=== PATIENT | female | born 1980 | race Caucasian/White ===

== ENCOUNTER 2016-06-14 10:37 | Emergency (ER) | payer MEDICAID ==
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
[2016-06-14] MEDS ORDERED: Prochlorperazine 5 mg/mL 2mL Vial IM STA (11:11)
[2016-06-14] MEDS ORDERED: Prochlorperazine 5 mg/mL 2mL Vial ONE (11:29)
[2016-06-14 11:56] LABS: % BASOPHILS 0.9 % (0.0-2.0); % EOSINOPHILS 1.9 % (0.0-5.0); % LYMPHOCYTES 21.9 % (20.0-50.0); % MONOCYTES 10.1 % (2.0-10.0); % NEUTROPHILS 65.2 % (40.0-80.0); HEMATOCRIT 41.3 % (35.0-45.0); MEAN CORPUSCULAR HEMOGLOBIN 29.7 pg (27.0-31.0); MEAN CORPUSCULAR HGB CONC 33.8 pg (28.0-36.0); MEAN PLATELET VOLUME 7.8 fl; NEUTROPHILE ABSOLUTE 5.2 Th/cmm (1.8-8.0); RED BLOOD COUNT 4.69 Mil/cmm (3.80-5.10); RED CELL DISTRIBUTION WIDTH 12.2 % (11.5-20.0); WHITE BLOOD COUNT 8.1 Th/cmm (4.8-10.8)
[2016-06-14 11:57] LABS: PLATELET COUNT 363 Th/cmm (150-400)
[2016-06-14 12:03] LABS: ANION GAP 10.2 (7.0-16.0); BUN - UREA NITROGEN 15 mg/dL (7-25); BUN/CREATININE RATIO 18.8; CALCIUM SERUM 9.9 mg/dL (8.6-10.3); CARBON DIOXIDE 28.4 mEq/L (21.0-31.0); CHLORIDE 103 mEq/L (98-107); CREATININE - SERUM 0.8 mg/dL (0.6-1.2); GLUCOSE 106 mg/dL (70-105); LIPASE 17 U/L (11-82); POTASSIUM SERUM 3.6 mEq/L (3.5-5.1); SODIUM SERUM 138 mEq/L (136-145)
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
== END 2016-06-14 12:50 | disposition home or self-care (01) ==
LOC: ER 10:37
DX: S39.81XA Other specified injuries of abdomen, initial encounter (principal); K46.9 Unspecified abdominal hernia without obstruction or gangrene; R03.0 Elevated blood-pressure reading, without diagnosis of hypertension; Z88.1 Allergy status to other antibiotic agents; W50.1XXA Accidental kick by another person, initial encounter; Y93.89 Activity, other specified; Y92.89 Other specified places as the place of occurrence of the external cause; Y99.8 Other external cause status
CPT/HCPCS: 99285; 74176; 96372 ×2; 36415; 85025; 83690; 80048; J1885; J0780

== ENCOUNTER 2016-12-11 11:33 | Emergency (ER) | payer MEDICAID ==
--- NOTE | 2016-12-11 11:45 | ED Physician Chart ---
Chief Complaint/HPI - Patient Information Date Seen:: 12/11/16 Time Seen:: 11:43 Chief Complaint:: lower extremity swelling History of Present Illness:: 36-year-old female complains of acute, constant, moderate to severe, bilateral lower shoulder swelling that has worsened over the past 3 days. Has some associated redness to the lower extremities. Also complains of acute, constant , worse with exertion, chest pain that started this morning also. Reports that she has a family history of hypercoagulable state. Denies ever having any DVT. Reports using methamphetamines 3 days ago. Denies numbness, tingling, diaphoresis, nausea, vomiting, headache, acute vision changes, abdominal pain, dysuria, gross hematuria, gross blood in stool. Allergies:: Allergies Allergy/AdvReac Type Severity Reaction Status Date / Time doxycycline Allergy Verified 06/14/16 10:45 Historian:: Patient Review:: Nurse's Note Reviewed Review of Systems - Review of Systems Other: Complete system review otherwise unremarkable except as noted in history of present illness. Past Medical History - Past Medical History Past Medical History: No significant medical hx Family History: None Social History: Non Smoker, No Alcohol, Illicit Drug Use (methamphetamine) Surgical History: None Psychiatricy History: None Medication: None Family Medical History - Family Member Paternal Grandfather History Unknown: Yes Ethnicity: Non- Living Status: Hx Family Cancer: Yes Mother History Unknown: Yes Living Status: Still Living Hx Family Hypertension: Yes Physical Exam - Physical Examination Other:: INITIAL VITAL SIGNS: Reviewed by me GENERAL: Alert and interactive. No acute distress HEAD: Head is normocephalic and atraumatic EYES: EOMI. PERRL. No scleral icterus. No conjunctival injection ENT: Moist mucous membranes. NECK: Supple. No masses. Full range of motion RESPIRATORY: No tachypnea. Clear breath sounds bilaterally. No wheezing, rales, or rhonchi CV: Regular rate and rhythm. No murmurs, rubs, or gallops ABDOMEN: Soft, non-distended, non-tender. No guarding. No rebound. No masses. EXTREMITIES: No deformity. No cyanosis. +1 pitting edema bilateral lower extremities. SKIN: Warm and dry. No obvious rashes. NEUROLOGIC: Alert and oriented. Face is symmetric. Speech is normal. Moves all extremities equally. Motor and sensory distally intact. Labs/Radiology/EKG Results - Lab Results Results: Lab Results 12/11/16 12/11/16 12/11/16 Range/Units 11:58 11:58 11:58 WBC 7.4 (4.8-10.8) Th/cmm RBC 4.50 (3.80-5.10) Mil/cmm Hgb 13.7 (11.7-15.5) gm/dL Hct 40.4 (35.0-45.0) % MCV 89.9 (81-100) fl MCH 30.4 (27.0-31.0) pg MCHC Differential 33.8 (28.0-36.0) pg RDW 12.9 (11.5-20.0) % Plt Count 292 (150-400) Th/cmm MPV 8.4 fl Neutrophils % 55.0 (40.0-80.0) % Lymphocytes % 29.9 (20.0-50.0) % Monocytes % 10.9 H (2.0-10.0) % Eosinophils % 3.9 (0.0-5.0) % Basophils % 0.3 (0.0-2.0) % PT 9.6 (9.5-11.5) SECONDS INR 0.92 (0.5-1.4) D-Dimer 103 (100-400) ng/mL Sodium 134 L (136-145) mEq/L Potassium 3.8 (3.5-5.1) mEq/L Chloride 104 (98-107) mEq/L Carbon Dioxide 27.1 (21.0-31.0) mEq/L Anion Gap 6.7 L (7.0-16.0) BUN 13 (7-25) mg/dL Creatinine 0.9 (0.6-1.2) mg/dL Est GFR ( Amer) > 60.0 (>90) ml/min Est GFR (Non-Af Amer) > 60.0 ml/min BUN/Creatinine Ratio 14.4 Glucose 103 (70-105) mg/dL Calcium 9.7 (8.6-10.3) mg/dL Total Bilirubin 0.4 (0.3-1.0) mg/dL AST 15 (13-39) U/L ALT 18 (7-52) U/L Alkaline Phosphatase 74 (34-104) U/L Troponin I (0.01-0.05) ng/mL B-Natriuretic Peptide (5.0-100.0) pg/mL Total Protein 7.0 (6.0-8.3) gm/dL Albumin 4.0 (3.7-5.3) gm/dL Globulin 3.0 gm/dL Albumin/Globulin Ratio 1.3 (1.0-1.8) Serum , Qual (NEGATIVE) 12/11/16 12/11/16 Range/Units 11:58 12:19 WBC (4.8-10.8) Th/cmm RBC (3.80-5.10) Mil/cmm Hgb (11.7-15.5) gm/dL Hct (35.0-45.0) % MCV (81-100) fl MCH (27.0-31.0) pg MCHC Differential (28.0-36.0) pg RDW (11.5-20.0) % Plt Count (150-400) Th/cmm MPV fl Neutrophils % (40.0-80.0) % Lymphocytes % (20.0-50.0) % Monocytes % (2.0-10.0) % Eosinophils % (0.0-5.0) % Basophils % (0.0-2.0) % PT (9.5-11.5) SECONDS INR (0.5-1.4) D-Dimer (100-400) ng/mL Sodium (136-145) mEq/L Potassium (3.5-5.1) mEq/L Chloride (98-107) mEq/L Carbon Dioxide (21.0-31.0) mEq/L Anion Gap (7.0-16.0) BUN (7-25) mg/dL Creatinine (0.6-1.2) mg/dL Est GFR ( Amer) (>90) ml/min Est GFR (Non-Af Amer) ml/min BUN/Creatinine Ratio Glucose (70-105) mg/dL Calcium (8.6-10.3) mg/dL Total Bilirubin (0.3-1.0) mg/dL AST (13-39) U/L ALT (7-52) U/L Alkaline Phosphatase (34-104) U/L Troponin I < 0.01 L (0.01-0.05) ng/mL B-Natriuretic Peptide 7.5 (5.0-100.0) pg/mL Total Protein (6.0-8.3) gm/dL Albumin (3.7-5.3) gm/dL Globulin gm/dL Albumin/Globulin Ratio (1.0-1.8) Serum , Qual NEGATIVE (NEGATIVE) - Radiology Results Results: Ultrasound venous Doppler bilateral lower extremity Negative for DVT - EKG Interpretations Comments:: 12-lead EKG Interpretation by Britney Hurt MD: Normal Sinus Rhythm with ventricular rate of 78 beats per minute Normal axis Normal intervals No acute ST or T wave changes. No obvious STEMI ED Septic Shock - . Is Septic Shock (SBP<90, OR Lactate>4 mmol\L) present?: No Reassessment (Disposition) - Reassessment Reassessment:: Patient presents with acute, worsening, bilateral lower extremity edema. Also has some chest pain. Said that she used amphetamines 3 days ago. The ultrasound venous Doppler bilateral lower extremity is negative for any DVTs. D -dimer, BNP and troponin are also unremarkable. Edema of the lower extremities made the dependent edema. Have recommended elevating legs at home. Has some unspecified chest pain. Recommended follow-up with primary care 1-2 days. Return to ER precautions are given. Patient says she understands and agrees with the plan. Blood pressure was noted to be elevated over 120/80. There were no signs of hypertension. Discussed the findings with the patient and recommended that the patient follow up with the primary care physician regarding the elevated blood pressure. Reassessment Condition:: Improved - Diagnosis Diagnosis:: Acute bilateral lower extremity edema, likely dependent Acute unspecified chest pain Elevated blood pressure without the diagnosis of hypertension - Aftercare/Follow up Instructions Aftercare/Follow-Up Instructions:: Counseled pt regarding lab results/diagnosis & need follow up, Refer to Discharge Instructions - Patient Disposition Discharge/Transfer:: Home Time:: 13:28 Condition at Disposition:: Improved ED Discharge Plan - Patient Disposition Instructions: Edema, [id number], Chest Pain Observation
[2016-12-11 12:24] LABS: ALB/GLOB RATIO 1.3 (1.0-1.8); ALKALINE PHOSPHATASE 74 U/L (34-104); ANION GAP 6.7 (7.0-16.0); BILIRUBIN,TOTAL 0.4 mg/dL (0.3-1.0); BUN - UREA NITROGEN 13 mg/dL (7-25); BUN/CREATININE RATIO 14.4; CALCIUM SERUM 9.7 mg/dL (8.6-10.3); CARBON DIOXIDE 27.1 mEq/L (21.0-31.0); CHLORIDE 104 mEq/L (98-107); CREATININE - SERUM 0.9 mg/dL (0.6-1.2); GLUCOSE 103 mg/dL (70-105); POTASSIUM SERUM 3.8 mEq/L (3.5-5.1); SGOT 15 U/L (13-39); SGPT/ALT 18 U/L (7-52); SODIUM SERUM 134 mEq/L (136-145)
[2016-12-11 12:26] LABS: % BASOPHILS 0.3 % (0.0-2.0); % EOSINOPHILS 3.9 % (0.0-5.0); % LYMPHOCYTES 29.9 % (20.0-50.0); % MONOCYTES 10.9 % (2.0-10.0); HEMATOCRIT 40.4 % (35.0-45.0); HEMOGLOBIN 13.7 gm/dL (11.7-15.5); MEAN CELL VOLUME 89.9 fl (81-100); MEAN CORPUSCULAR HEMOGLOBIN 30.4 pg (27.0-31.0); MEAN CORPUSCULAR HGB CONC 33.8 pg (28.0-36.0); MEAN PLATELET VOLUME 8.4 fl; NEUTROPHILE ABSOLUTE 4.1 Th/cmm (1.8-8.0); PLATELET COUNT 292 Th/cmm (150-400); RED CELL DISTRIBUTION WIDTH 12.9 % (11.5-20.0); WHITE BLOOD COUNT 7.4 Th/cmm (4.8-10.8)
[2016-12-11 12:35] LABS: TROP I < 0.01 ng/mL (0.01-0.05)
[2016-12-11 12:40] LABS: INR 0.92 (0.5-1.4); PROTHROMBIN TIME (TEST) 9.6 SECONDS (9.5-11.5)
[2016-12-11 12:47] LABS: BNP 7.5 pg/mL (5.0-100.0)
--- NOTE | 2016-12-12 10:32 | Diagnostic Imaging Report ---
Bilateral lower extremity DVT study HISTORY: Bilateral lower showings swelling, coagulopathy COMPARISON: None Technique: Longitudinal and transverse sonographic images of the bilateral lower extremity veins were obtained with doppler analysis. FINDINGS: There is normal compressibility, augmentation and phasicity of the bilateral common femoral, superficial femoral, popliteal, and posterior tibial veins. No thrombus is visualized. IMPRESSION: No evidence of thrombus within the bilateral lower extremity veins.
== END 2016-12-11 14:04 | disposition home or self-care (01) ==
LOC: ER 11:33
DX: R60.0 Localized edema (principal); R07.9 Chest pain, unspecified; R03.0 Elevated blood-pressure reading, without diagnosis of hypertension; Z88.8 Allergy status to other drugs, medicaments and biological substances
CPT/HCPCS: 36415-UA; 71010-TC; 71275-TC; 80053-TC; 83880-TC; 84484-TC; 84703-TC; 85025-TC; 85379-TC; 85610-TC; 93005; 93970-TC-50

== ENCOUNTER 2017-10-01 14:05 | Emergency (ER) | payer MEDICAID ==
--- NOTE | 2017-10-01 15:27 | ED Physician Chart ---
ED Chief Complaint/HPI - Patient Information Date Seen:: 10/01/17 Time Seen:: 15:05 Chief Complaint:: . TINNITUS BOTH EARS SINCE JUNE OF THIS YEAR. History of Present Illness:: The patient has tinnitus in both ears that is thought to be secondary to toxicity from amikacin and meropenem. Also has experienced decreased hearing in both ears. Patient has been seen by her primary physician and is awaiting referral to ENT specialist for more extensive evaluation. Allergies:: Allergies Allergy/AdvReac Type Severity Reaction Status Date / Time doxycycline Allergy Verified 10/01/17 14:47 hydromorphone [From Dilaudid] Allergy Verified 10/01/17 14:47 tape adhesive Allergy Uncoded 10/01/17 14:47 Vitals:: Vital Signs - 8 hr 10/01/17 14:48 Temp 98.3 F HR 96 RR 18 BP 136/88 O2 Sat % 97 ED Review of Systems - Review of Systems General/Constitutional: No fever, No chills, No weight loss, No weakness, No diaphoresis, No edema, Loss of appetite Skin: No skin lesions, No rash, No bruising Head: No headache, Other (occasional lightheadedness.) Eyes: No loss of vision, No pain, Diplopia (diplopia infrequent) Hematopoietic: No bruising Neurological: No syncope, No weakness, No paresthesia, No headache, No seizure, Dizziness, Vertigo (Vertigo is intermittent. None at this time) ED Past Medical History - Past Medical History Family History: Other (HAS HAD SEVERE INFECTIONS REQUIRING STRONG ANTIBIOTICS) Social History: Non Smoker, Alcohol, No Drug Use, , Employed Medication: None ( NO MEDICATIONS AT THIS TIME.) Family Medical History - Family Member Paternal Grandfather History Unknown: Yes Ethnicity: Non- Living Status: Hx Family Cancer: Yes Hx Family Coronary Artery Disease: Yes Mother History Unknown: Yes Ethnicity: Non- Living Status: Still Living Hx Family Cancer: Yes Hx Family Hypertension: Yes ED Physical Exam - Physical Examination General/Constitutional: Awake, Well-developed, well-nourished, Alert, No distress, GCS 15, Non-toxic appearing, Ambulatory Head: Atraumatic Eyes: Lids, conjuctiva normal, PERRL, EOMI Other Eyes comments:: ED Labs/Radiology/EKG Results - Lab Results Results: NO LAB OR RADIOLOGIC STUDIES INDICATED AT THIS TIME. TINNITUS 2018 PRESENT SINCE JUL ED Assessment - Assessment General Assessment: CASE SUMMARY: THIS 37 YEAR OLD FEMALE HAS HAD TINNITUS SINCE TAKING AMINOGLYCOSIDE ANTIBIOTICS AND HER DOCTOR THINKS THIS IS THE CAUSE OF HER TINNITUS. SHE HAS SCHEDULED APPOINTMEN IN THE [facility] MONTHS ED Septic Shock - . Is Septic Shock (SBP<90, OR Lactate>4 mmol\L) present?: No - <6hrs of presentation: Vital Signs: Vital Signs - 8 hr 10/01/17 14:48 Temp 98.3 F HR 96 RR 18 BP 136/88 O2 Sat % 97 ED Reassessment (Disposition) - Reassessment Reassessment Condition:: Unchanged - Diagnosis Diagnosis:: . NEUROGENIC TINNITUS. AVOID LOUD NOISES. FOLLOW UP WITH YOUR PRIMARY CARE PHYSICIAN FOR REFERRAL TO ENT EVALUATION. ED Discharge Plan - Patient Disposition Admit/Discharge/Transfer: PT DISCHARGED HOME Condition at Disposition: Stable Instructions: Tinnitus
== END 2017-10-01 15:57 | disposition home or self-care (01) ==
LOC: ER 14:05
DX: H93.13 Tinnitus, bilateral (principal); Z88.8 Allergy status to other drugs, medicaments and biological substances
CPT/HCPCS: Z7502

== ENCOUNTER 2017-12-03 22:17 | Emergency (ER) | payer MEDICAID ==
[2017-12-03 22:57] LABS: URINE MICROSCOPIC INDICATED? YES; URINE SOURCE RANDOM
[2017-12-03 23:00] LABS: URINE BILIRUBIN NEGATIVE (NEGATIVE); URINE BLOOD NEGATIVE (NEGATIVE); URINE GLUCOSE (UA) NEGATIVE (NEGATIVE); URINE KETONE NEGATIVE (NEGATIVE); URINE LEUKOCYTE ESTERASE NEGATIVE (NEGATIVE); URINE NITRATE NEGATIVE (NEGATIVE); URINE PH 5.5 (4.6 - 8.0); URINE PROTEIN TRACE mg/dL (NEGATIVE); URINE UROBILINOGEN 0.2 E.U./dL (0.2 - 1.0)
[2017-12-03 23:21] LABS: URINE CLARITY CLEAR (CLEAR); URINE COLOR YELLOW
[2017-12-03 23:22] LABS: URINE BACTERIA NONE SEEN /hpf (NONE SEEN); URINE EPITHELIAL CELLS NONE SEEN /lpf (FEW); URINE RBC NONE SEEN /hpf (0-5); URINE WBC NONE SEEN /hpf (0-5)
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
--- NOTE | 2017-12-04 09:35 | Diagnostic Imaging Report ---
Left hand 3 views Indication: Trauma Comparison: none Findings: There is a nondisplaced fracture of the distal shaft of the fifth metacarpal with mild surrounding soft tissue swelling. No dislocation. No significant arthritis. Impression: Nondisplaced fracture of the distal shaft of the fifth metacarpal with mild surrounding soft tissue swelling.
== END 2017-12-03 23:55 | disposition home or self-care (01) ==
LOC: ER 22:17
DX: S62.92XA Unspecified fracture of left hand, initial encounter for closed fracture (principal); Z88.1 Allergy status to other antibiotic agents; Z88.5 Allergy status to narcotic agent; W22.8XXA Striking against or struck by other objects, initial encounter; Y93.89 Activity, other specified; Y92.89 Other specified places as the place of occurrence of the external cause; Y99.8 Other external cause status
CPT/HCPCS: 73130-TC-LT; 81001-TC; 81025-TC

== ENCOUNTER 2018-01-21 08:46 | Emergency (ER) | payer MEDICAID ==
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
[2018-01-21] MEDS ORDERED: Acetaminophen 500 MG TAB ONE (10:39)
[2018-01-21] MEDS ORDERED: Acetaminophen 500 MG TAB PO ONE (11:41)
== END 2018-01-21 10:05 | disposition home or self-care (01) ==
LOC: ER 08:46
DX: T81.4XXA Infection following a procedure, initial encounter (principal); Z88.1 Allergy status to other antibiotic agents; Z88.5 Allergy status to narcotic agent; Z91.048 Other nonmedicinal substance allergy status; Z98.890 Other specified postprocedural states
CPT/HCPCS: 99283; 96372; J0696; Z7502; Z7610

== ENCOUNTER 2018-02-13 21:59 | Emergency (ER) | payer MEDICAID ==
[2018-02-13] MEDS ORDERED: Ciprofloxacin 400mg Premix PB 400 MG/200 ML BAG IV ONE ×2 (22:47→23:00)
[2018-02-13 23:06] LABS: % BASOPHILS 1.1 % (0.0-2.0); % EOSINOPHILS 3.2 % (0.0-5.0); % LYMPHOCYTES 21.8 % (20.0-50.0); % MONOCYTES 9.9 % (2.0-10.0); BASOPHILE ABSOLUTE 0.1 Th/cumm (0-0.2); EOSINOPHILE ABSOLUTE 0.2 Th/cmm (0.1-0.4); HEMATOCRIT 31.2 % (41.0-60); HEMOGLOBIN 10.3 gm/dL (12-16); LYMPHOCYTE ABSOLUTE 1.6 Th/cmm (1.5-3.0); MEAN CELL VOLUME 80.7 fl (81-100); MEAN CORPUSCULAR HEMOGLOBIN 26.6 pg (27.0-31.0); MEAN PLATELET VOLUME 6.7 fl; MONOCYTE ABSOLUTE 0.7 Th/cmm (0.3-1.0); NEUTROPHILE ABSOLUTE 4.9 Th/cmm (1.8-8.0); PLATELET COUNT 481 Th/cmm (150-400); RED BLOOD COUNT 3.87 Mil/cmm (3.80-5.10); RED CELL DISTRIBUTION WIDTH 14.1 % (11.5-20.0); WHITE BLOOD COUNT 7.5 Th/cmm (4.8-10.8)
[2018-02-13 23:21] LABS: ALB/GLOB RATIO 1.1 (1.0-1.8); ALBUMIN 3.4 gm/dL (3.7-5.3); ALKALINE PHOSPHATASE 108 U/L (34-104); ANION GAP 10.2 (7.0-16.0); BILIRUBIN,TOTAL 0.2 mg/dL (0.3-1.0); BUN - UREA NITROGEN 15 mg/dL (7-25); CALCIUM SERUM 9.4 mg/dL (8.6-10.3); CARBON DIOXIDE 25.2 mEq/L (21.0-31.0); CHLORIDE 103 mEq/L (98-107); CREATININE - SERUM 0.8 mg/dL (0.6-1.2); GFR AFRICAN-AMERICAN > 60.0 ml/min (>90); GFR NON AFRICAN-AMERICAN > 60.0 ml/min; GLUCOSE 114 mg/dL (70-105); MAGNESIUM 1.6 mg/dL (1.9-2.7); PHOSPHOROUS 2.9 mg/dL (2.5-5.0); POTASSIUM SERUM 3.4 mEq/L (3.5-5.1); SGOT 11 U/L (13-39); SGPT/ALT 14 U/L (7-52); SODIUM SERUM 135 mEq/L (136-145); TOTAL PROTEIN,SERUM 6.4 gm/dL (6.0-8.3)
[2018-02-13] MEDS ORDERED: Potassium Chloride 20 mEq ER Tab PO ONE ×2 (23:25→23:39)
[2018-02-13] MEDS ORDERED: Maalox 30 mL Cup PO ONE (23:25)
[2018-02-13] MEDS ORDERED: Maalox 30 mL Cup ONE (23:39)
--- NOTE | 2018-02-13 23:54 | ED Physician Chart ---
ED Chief Complaint/HPI - Patient Information Date Seen:: 02/13/18 Time Seen:: 22:05 Chief Complaint:: displaced drain History of Present Illness:: 37 yo female with multiple abdominal surgeries involving repair of a ventral hernia complicated by pseudomonas and mycobacteria infection. Biological mesh removed and replaced. Synthetic mesh placed. From most recent surgery 2 months ago in 12/2017, she has 1 of [address] remaining [address] in [address]. It is nearly out. Her surgeon told her to pull her own drain out tonight when she called to ask him for advice. She presents to the ER asking for us to pull her drain. In her history telling, patient sounds litigious. She is angry and frustrated that she lost part of her hearing from IV Amikacin. While pulling off her shirt to undress and be placed in a hospital gown, the drain fell out on its own. Nurse Arminda asked the patient it she wanted to still be seen by the doctor since her drain no longer has to be removed. She said yes. Patient denies any pain, fevers, chills, nausea, vomiting or diarrhea. She is eating well. I asked to see the gauze around the drain which she still has with her. It is slightly green tinged and smells strongly of pseudomonas. Allergies:: Allergies Allergy/AdvReac Type Severity Reaction Status Date / Time doxycycline Allergy Verified 02/13/18 22:09 hydromorphone [From Dilaudid] Allergy Verified 02/13/18 22:09 tape adhesive Allergy Uncoded 10/01/17 14:47 Vitals:: Vital Signs - 8 hr 02/13/18 22:05 Temp 98.2 F HR 104 RR 18 BP 138/91 O2 Sat % 99 ED Review of Systems - Review of Systems General/Constitutional: No fever, No chills, No weight loss, No weakness, No diaphoresis, No edema, No loss of appetite Skin: No skin lesions, No rash, No bruising, Other (loose and dislodged KOBI drain that came out while patient was undressing.) Head: No headache, No light-headedness Eyes: No loss of vision, No pain, No diplopia ENT: No earache, No nasal drainage, No sore throat, No tinnitus Neck: No neck pain, No swelling, No thyromegaly, No stiffness, No mass noted Cardio Vascular: No chest pain, No palpitations, No PND, No orthopnea, No edema Pulmonary: No SOB, No cough, No sputum, No wheezing GI: No nausea, No vomiting, No diarrhea, No pain, No melena, No hematochezia, No constipation, No hematemesis G/U: No dysuria, No frequency, No hematuria Musculoskeletal: No bone or joint pain, No back pain, No muscle pain Endocrine: No polyuria, No polydipsia Psychiatric: No prior psych history, No depression, No anxiety, No suicidal ideation Hematopoietic: No bruising, No lymphadenopathy Allergic/Immuno: No urticaria, No angioedema Neurological: No syncope, No focal symptoms, No weakness, No paresthesia, No headache, No seizure, No dizziness, No confusion, No vertigo ED Past Medical History - Past Medical History Obtainable: Yes Past Medical History: Other (see HPI) Family Medical History - Family Member Paternal Grandfather History Unknown: Yes Ethnicity: Non- Living Status: Hx Family Cancer: Yes Hx Family Coronary Artery Disease: Yes Mother History Unknown: Yes Ethnicity: Non- Living Status: Still Living Hx Family Cancer: Yes Hx Family Hypertension: Yes ED Physical Exam - Physical Examination General/Constitutional: Awake, Well-developed, well-nourished, Alert, No distress, GCS 15, Non-toxic appearing, Ambulatory Other Gen/Cons comments:: Overweight. Head: Atraumatic Eyes: Lids, conjuctiva normal, PERRL, EOMI Skin: Nl inspection, No rash, No skin lesions, No ecchymosis, Well hydrated, No lymphadenopathy ENMT: External ears, nose nl, Nasal exam nl, Lips, teeth, gums nl Neck: Nontender, Full ROM w/o pain, No JVD, No nuchal rigidity, No bruit, No mass, No stridor GI: No tenderness/rebounding/guarding, No organomegaly, No hernia, Normal BS's, Nondistended, No mass/bruits, No McBurney tenderness Other GI comments:: Multiple scars throughout abdomen. No umbilicus. Midline KOBI drain hole with granulation tissue around it. No cellulitis. No pus. KOBI drain gauze is green tinged with the smell of pseudomonas. OKBI fluid looks serous and turbid. Fluid sent to aerobic culture. No crepitance. : No CVA tenderness Extremities: No tenderness or effusion, Full ROM, normal strength in all extremities, No edema, Normal digits & nails Neuro/Psych: Alert/oriented, Normal sensory exam, Normal motor strength, Judgement/insight normal, Mood normal, Normal gait, No focal deficits Misc: Normal back, No paraspinal tenderness ED Labs/Radiology/EKG Results - Lab Results Results: Laboratory Tests 02/13/18 02/13/18 23:00 23:00 WBC 7.5 RBC 3.87 Hgb 10.3 L Hct 31.2 L MCV 80.7 L MCH 26.6 L MCHC Differential 33.0 RDW 14.1 Plt Count 481 H MPV 6.7 Neutrophils % 64.0 Lymphocytes % 21.8 Monocytes % 9.9 Eosinophils % 3.2 Basophils % 1.1 Sodium 135 L Potassium 3.4 L Chloride 103 Carbon Dioxide 25.2 Anion Gap 10.2 BUN 15 Creatinine 0.8 Est GFR ( Amer) > 60.0 Est GFR (Non-Af Amer) > 60.0 BUN/Creatinine Ratio 18.8 Glucose 114 H Calcium 9.4 Phosphorus 2.9 Magnesium 1.6 L Total Bilirubin 0.2 L AST 11 L ALT 14 Alkaline Phosphatase 108 H Total Protein 6.4 Albumin 3.4 L Globulin 3.0 Albumin/Globulin Ratio 1.1 ED Assessment - Assessment General Assessment: potassium and magnesium replaced. Assessment/Comments:: tolerated IV Cipro well. ED Septic Shock - . Is Septic Shock (SBP<90, OR Lactate>4 mmol\L) present?: No - <6hrs of presentation: Vital Signs: Vital Signs - 8 hr 02/13/18 22:05 Temp 98.2 F HR 104 RR 18 BP 138/91 O2 Sat % 99 ED Reassessment (Disposition) - Reassessment Reassessment Condition:: Improved - Diagnosis Diagnosis:: Pseudomonas Serous drainage Low potassium, Low magnesium - Aftercare/Follow up Instructions Aftercare/Follow-Up Instructions:: Refer to Discharge Instructions Medication Prescribed:: Patient refuses oral ciprofloxacin since she says that it causes oral thrush in her and diarrhea. - Patient Disposition Discharge/Transfer:: Home Condition at Disposition:: Stable, Improved
[2018-02-14 00:18] LABS: ESR SEDIMENTATION SED RATE 70 mm/hr (0-30)
== END 2018-02-14 00:25 | disposition home or self-care (01) ==
LOC: ER 21:59
DX: T81.89XA Other complications of procedures, not elsewhere classified, initial encounter (principal); B96.5 Pseudomonas (aeruginosa) (mallei) (pseudomallei) as the cause of diseases classified elsewhere; E87.6 Hypokalemia; E61.2 Magnesium deficiency; Z88.1 Allergy status to other antibiotic agents; Z88.5 Allergy status to narcotic agent; Z91.048 Other nonmedicinal substance allergy status
CPT/HCPCS: 99284; 96365; 36415; 87075; 87205; 85025; 85652; 87070; 83735; 84100; 80053; 87040 ×2; J0744; Z7502

== ENCOUNTER 2018-04-30 20:06 | Emergency (ER) | payer MEDICAID ==
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
== END 2018-04-30 21:35 | disposition home or self-care (01) ==
LOC: ER 20:06
DX: S63.92XA Sprain of unspecified part of left wrist and hand, initial encounter (principal); S63.91XA Sprain of unspecified part of right wrist and hand, initial encounter; S50.11XA Contusion of right forearm, initial encounter; Z88.5 Allergy status to narcotic agent; Z88.1 Allergy status to other antibiotic agents; Z91.048 Other nonmedicinal substance allergy status; Y00.XXXA Assault by blunt object, initial encounter; Y93.89 Activity, other specified; Y92.89 Other specified places as the place of occurrence of the external cause; Y99.8 Other external cause status
CPT/HCPCS: 73090-TC-RT; 73120-TC-LT; 81025-TC; Z7502